=== PATIENT | female | born 1930 | race Caucasian/White ===

== ENCOUNTER → 2016-12-18 | Outpatient (CLI) | payer OTHER ==
[~2016-12-18] MED LIST: APIX5TAB OR; CELE100C82 PO; CIPR-173 PO; LEVO50TA7 PO; METO25TA62 PO; OXYB15TA12 PO
== END | disposition home or self-care (01) ==
LOC: XYW 07:58
PROVIDERS: ATTEND Orthopaedic Surgery
DX: Z01.818 Encounter for other preprocedural examination (principal); I08.1 Rheumatic disorders of both mitral and tricuspid valves
CPT/HCPCS: 93306

== ENCOUNTER → 2017-12-03 | Outpatient (CLI) | payer OTHER ==
[~2017-12-03] MED LIST changes: -APIX5TAB OR; +APIX5TAB PO; -CELE100C82 PO; +CELE1CAP8 PO; -CIPR-173 PO; +CLOB0.055 TOP; +HYDR25TA4 PO; +METO-169 PO; -METO25TA62 PO; -OXYB15TA12 PO
== END | disposition home or self-care (01) ==
LOC: XYW 07:25
PROVIDERS: ATTEND Internal Medicine Cardiovascular Disease
DX: I34.0 Nonrheumatic mitral (valve) insufficiency (principal); I10 Essential (primary) hypertension; E03.9 Hypothyroidism, unspecified
CPT/HCPCS: 93306

== ENCOUNTER 2017-12-06 08:45 | Emergency (ER) | payer OTHER, MEDICAID ==
[~2017-12-06] VITALS: Ht 152.4 cm; Wt 81.6 kg
[2017-12-06 08:53] VITALS: BP 123/60
[2017-12-06] MEDS ORDERED: cefTRIAXone SOD 1,000 MG VL IM ONE (09:30)
[2017-12-06] MEDS ORDERED: LIDOCAINE 1% HCL (LOCAL ANESTH.) INJ 20ML MDV IJ ONE (09:30)
[2017-12-06] MEDS ORDERED: LIDOCAINE 1% (LOCAL ANESTH.) PF 5ml SDV ONE (09:31)
== END 2017-12-06 10:15 | disposition home or self-care (01) ==
LOC: ER 08:45
DX: S51.852A Open bite of left forearm, initial encounter (principal); B99.9 Unspecified infectious disease; I10 Essential (primary) hypertension; E07.89 Other specified disorders of thyroid; Z90.710 Acquired absence of both cervix and uterus; Z90.89 Acquired absence of other organs; W55.01XA Bitten by cat, initial encounter; Y93.89 Activity, other specified; Y99.8 Other external cause status; Y92.89 Other specified places as the place of occurrence of the external cause
CPT/HCPCS: 96372; 99284; J0696

== ENCOUNTER 2019-02-11 06:51 | Day surgery (SDC) | payer OTHER, MEDICAID ==
[2019-02-09 11:06] LABS: Basophils # (auto) 0.1 uL; Eosinophils # (auto) 0.1 uL; Eosinophils % (auto) 1.2 % (0.0-7.0); Hematocrit 46.8 % (36.0-46.0); Hemoglobin 15.3 g/dL (12.2-16.2); Lymphocytes # (auto) 1.6 uL; Lymphocytes % (auto) 17.4 % (10.0-50.0); Mean Corpuscular Hemoglobin 28.3 pg (28.0-32.0); Mean Corpuscular Hgb Conc. 32.7 g/dL (32.0-36.0); Mean Corpuscular Volume 86.6 fL (80.0-100.0); Monocytes # (auto) 0.6 uL; Neutrophils # (auto) 6.6 uL; Neutrophils % (auto) 73.4 % (37.0-80.0); Nucleated Red Blood Cells % 0.1 %; Platelet Count (auto) 264 10^3/uL (140-450); Red Blood Cells 5.41 10^6/uL (4.0-5.20); Red Cell Distribution Width 15.5 % (11.8-14.3)
[2019-02-09 11:12] LABS: Urine Bacteria FEW /hpf (None Seen); Urine Blood Negative /uL (Negative); Urine Hyaline Cast FEW /lpf (0 - 2); Urine Mucus FEW (None Seen); Urine Specific Gravity 1.019 (1.001-1.035); Urine WBC 45 /hpf (0 - 5)
[2019-02-09 11:21] LABS: INR 0.99 (0.9-1.15); Partial Thromboplastin Time 29.3 sec (23.64-32.05)
[2019-02-09 11:25] LABS: Albumin 3.6 g/dL (3.4-5.0); Calcium 9.6 mg/dL (8.5-10.1); Potassium 3.9 mmol/L (3.5-5.1)
[2019-02-09 11:29] LABS: BUN/Creatinine Ratio 29.1; Bilirubin, Total 0.5 mg/dL (0.2-1.0); Total Protein 7.9 g/dL (6.4-8.2)
[~2019-02-11] VITALS: Ht 149.9 cm; Wt 80.7 kg
[~2019-02-11 06:51] MED LIST changes: +ACET-1156 PO; -CLOB0.055 TOP; +DILT120C64 PO; -METO-169 PO
[2019-02-11] MEDS ORDERED: IOHEXOL 350 MG/ML 100ML IJ ONE ×2 (08:24→09:12)
[2019-02-11] MEDS ORDERED: LIDOCAINE 2%HCL (LOCAL ANESTH.) INJ 20ML MDV ONE ×2 (08:24→09:15)
[2019-02-11] MEDS ORDERED: DOPamine 1600MCG/ML D5W 0 ML IV ONE (08:31)
[2019-02-11] MEDS ORDERED: ANGIOMAX 250 MG VIAL IV ONE (08:32)
[2019-02-11] MEDS ORDERED: SODIUM CHL 0.9% 50 ML ONE (08:32)
[2019-02-11] MEDS ORDERED: PHENYLEPHRINE HCL 10 MG/ML VL ONE (08:33)
[2019-02-11] MEDS ORDERED: ATROPINE SULF 1 MG/10ml SYR ONE (08:37)
[2019-02-11] MEDS ORDERED: fentaNYL CITRATE 100 MCG/2 ML VL ONE (09:05)
[2019-02-11] MEDS ORDERED: MIDAZOLAM HCL 1MG/1ML-2 ML VIAL ONE (09:05)
[2019-02-11] MEDS ORDERED: ACETAMINOPHEN 500 MG TAB PO PRN (10:30)
== END 2019-02-11 15:35 | disposition home or self-care (01) ==
LOC: CATH 06:51
PROVIDERS: ATTEND Internal Medicine
DX: I71.4 Abdominal aortic aneurysm, without rupture (principal); I10 Essential (primary) hypertension; Z96.653 Presence of artificial knee joint, bilateral; Z96.641 Presence of right artificial hip joint
CPT/HCPCS: 36200; 36415; 75625; 80053; 81001; 85025; 85610; 85730; 86850; 86900; 86901; 86920; C1760; C1769; C1894; J1644; J2250; J3010; J7030; Q9967; 99152; 99153

== ENCOUNTER → 2019-09-22 | Outpatient (CLI) | payer OTHER, MEDICAID ==
[2019-09-22 09:15] LABS: Calcium 8.8 mg/dL (8.5-10.1); Potassium 4.2 mmol/L (3.5-5.1)
[2019-09-22 09:17] LABS: BUN/Creatinine Ratio 26.9
== END | disposition home or self-care (01) ==
LOC: LAB 08:27
PROVIDERS: ATTEND Physician Assistant
DX: Z98.890 Other specified postprocedural states (principal)
CPT/HCPCS: 36415; 80048

== ENCOUNTER → 2019-11-04 | Emergency (ER) | payer OTHER, MEDICAID ==
[~2019-11-04] VITALS: Ht 149.9 cm; Wt 85.3 kg
[~2019-11-04] MED LIST changes: +IOHEXOL 300 MG/ML 100ML BOTTLE IJ ONE; +IOHEXOL 350 MG/ML 100ML IJ ONE
[2019-11-04 10:04] LABS: Basophils # (auto) 0 10 ^3/uL (0-0.2); Basophils % (auto) 0.4 % (0.0-2.0); Eosinophils # (auto) 0.2 10 ^3/uL (0-0.8); Eosinophils % (auto) 1.7 % (0.0-7.0); Hematocrit 45.8 % (36.0-46.0); Lymphocytes # (auto) 1.4 10 ^3/uL (0.4-5.4); Mean Corpuscular Hemoglobin 27.5 pg (28.0-32.0); Mean Corpuscular Hgb Conc. 32.7 g/dL (32.0-36.0); Mean Corpuscular Volume 84.1 fL (80.0-100.0); Monocytes # (auto) 1.2 10 ^3/uL (0-1.3); Monocytes % (auto) 10.6 % (0.0-12.0); Neutrophils # (auto) 8.7 10 ^3/uL (1.6-8.6); Neutrophils % (auto) 75.3 % (37.0-80.0); Nucleated Red Blood Cells % 0.1 %; Platelet Count (auto) 289 10^3/uL (140-450); Red Blood Cells 5.45 10^6/uL (4.0-5.20); Red Cell Distribution Width 15.2 % (11.8-14.3); White Blood Cell 11.5 10^3/uL (4.4-10.8)
[2019-11-04 10:21] LABS: Anion Gap 8 (5-15); Blood Urea Nitrogen 26 mg/dL (7-18); Calcium 8.8 mg/dL (8.5-10.1); Carbon Dioxide 24 mmol/L (21-32); Chloride 108 mmol/L (98-107); Glucose 120 mg/dL (74-106); INR 1.1 (0.9-1.15); Partial Thromboplastin Time 31.3 sec (23.0-31.2); Potassium 3.6 mmol/L (3.5-5.1); Sodium 140 mmol/L (136-145)
[2019-11-04 10:27] LABS: Alanine Aminotransferase 26 U/L (13-56); Alkaline Phosphatase 94 U/L (45-117); Aspartate Aminotransferase 27 U/L (15-37); BUN/Creatinine Ratio 29.5; Bilirubin, Total 0.4 mg/dL (0.2-1.0); GFR African American 78 mL/min; GFR Non-African American 65 mL/min; Total Protein 6.9 g/dL (6.4-8.2)
[2019-11-04 13:49] VITALS: BP 133/55
== END | disposition home or self-care (01) ==
LOC: ER 09:19
DX: R07.89 Other chest pain (principal); D72.829 Elevated white blood cell count, unspecified; I11.0 Hypertensive heart disease with heart failure; I50.43 Acute on chronic combined systolic (congestive) and diastolic (congestive) heart failure; Z90.49 Acquired absence of other specified parts of digestive tract; Z79.899 Other long term (current) drug therapy
CPT/HCPCS: 36415; 71045; 74177; 80053; 83880; 84484; 85025; 85610; 85730; 93005; 99285; Q9967

== ENCOUNTER → 2020-01-13 | Outpatient (CLI) | payer OTHER, MEDICAID ==
[~2020-01-13] MED LIST changes: +APIX5TAB OR; +CELE100C82 PO; -IOHEXOL 300 MG/ML 100ML BOTTLE IJ ONE; -IOHEXOL 350 MG/ML 100ML IJ ONE; +METO-158 PO; +TRIA50TA2 PO
== END | disposition home or self-care (01) ==
LOC: XYW 07:48
PROVIDERS: ATTEND Internal Medicine
DX: I50.33 Acute on chronic diastolic (congestive) heart failure (principal)
CPT/HCPCS: 93306

== ENCOUNTER → 2020-02-10 | Outpatient (CLI) | payer OTHER, MEDICAID | END | disposition home or self-care (01) | LOC: RT 08:29 | PROVIDERS: ATTEND Internal Medicine | DX: R06.02 Shortness of breath (principal) | CPT/HCPCS: 94060; 94727; 94729 ==

== ENCOUNTER 2020-07-11 12:23 | Observation (INO) | payer OTHER, MEDICAID ==
[~2020-07-11] VITALS: Ht 149.9 cm; Wt 87.5 kg
[2020-07-11 14:01] LABS: Hematocrit 46.7 % (36.0-46.0); Hemoglobin 15.7 g/dL (12.2-16.2); Mean Corpuscular Hemoglobin 29.3 pg (28.0-32.0); Mean Corpuscular Hgb Conc. 33.7 g/dL (32.0-36.0); Mean Corpuscular Volume 87.2 fL (80.0-100.0); Platelet Count (auto) 339 10^3/uL (140-450); Red Blood Cells 5.36 10^6/uL (4.0-5.20); Red Cell Distribution Width 15.2 % (11.8-14.3); White Blood Cell 13.2 10^3/uL (4.4-10.8)
[2020-07-11 14:09] LABS: Basophils % (manual) 0 (0.0-2.0); Blast Cells 0; Metamyelocytes % 0; Myelocytes % 0; Promyelocytes % 0; Reactive Lymphocytes 0
[2020-07-11 14:14] LABS: Albumin 3.3 g/dL (3.4-5.0); BUN/Creatinine Ratio 36.4; Calcium 9.5 mg/dL (8.5-10.1)
[2020-07-11 14:16] LABS: Bilirubin, Total 0.5 mg/dL (0.2-1.0); Total Protein 7.9 g/dL (6.4-8.2)
[2020-07-11] MEDS ORDERED: CLINDAMYCIN 600MG IV 50 ML IV ONE (15:45)
[2020-07-11 16:12] LABS: Band Neutrophils % (manual) 2; Eosinophils % (manual) 2 (0-7); Lymphocytes % (manual) 12 (10.0-50.0); Monocytes % (manual) 10 (0-12)
[2020-07-11] MEDS ORDERED: MORPHINE SULF INJ 2 MG/ML SYRINGE 1ML IV PRN ×2 (17:00)
[2020-07-11] MEDS ORDERED: ONDANSETRON HCL 4 MG/2 ML VIAL IV PRN (17:00)
[2020-07-11] MEDS ORDERED: ACETAMINOPHEN 325 MG TAB PO PRN (17:00)
[2020-07-11] MEDS ORDERED: NITROGLYCERIN 0.4 MG SL TAB SL PRN (17:00)
[2020-07-11] MEDS ORDERED: SODIUM CHLORIDE 0.9% 1,000 ML IV SCH (17:00)
[2020-07-11 22:00] VITALS: BP 120/66
[2020-07-11] MEDS ORDERED: APIXABAN 5 MG TAB PO SCH (22:00)
[2020-07-11 22:40] VITALS: BP 125/64
[2020-07-11] MEDS: CLINDAMYCIN 300MG IV 50 ML IV SCH (23:23)
[2020-07-11] MEDS: CELECOXIB 100 MG CAP PO SCH (23:24)
[2020-07-11] MEDS: APIXABAN 5 MG TAB PO SCH (23:24)
[2020-07-12 05:16] VITALS: BP 115/60
[2020-07-12] MEDS: CLINDAMYCIN 300MG IV 50 ML IV SCH ×2 (07:00→14:05)
[2020-07-12] MEDS ORDERED: LEVOTHYROXINE SODIUM 50 MCG TAB PO SCH (07:00)
[2020-07-12 09:00] VITALS: BP 110/76
[2020-07-12] MEDS ORDERED: cefTRIAXone 1GM/50ML D5W 50 ML IV SCH (09:00)
[2020-07-12] MEDS: APIXABAN 5 MG TAB PO SCH (09:50)
[2020-07-12] MEDS: CELECOXIB 100 MG CAP PO SCH (09:50)
[2020-07-12] MEDS ORDERED: FLORASTOR (S. BOULARDII) 250 MG CAP PO SCH (10:00)
[2020-07-12] MEDS ORDERED: dilTIAZem 120MG ER CAP PO SCH (10:00)
[2020-07-12] MEDS ORDERED: PANTOPRAZOLE 40 MG TAB PO SCH (10:00)
[2020-07-12 13:00] VITALS: BP 123/71
[2020-07-12 14:33] VITALS: BP 123/71
[2020-07-12 16:55] VITALS: BP 120/80
== END 2020-07-12 16:10 | disposition home or self-care (01) ==
LOC: ER 12:23 → INTOOBSV 16:56 → TELE 16:56 → TELE-CENTR 21:40
PROVIDERS: ADMIT Nurse Practitioner Acute Care; ATTEND Internal Medicine
DX: L03.116 Cellulitis of left lower limb (principal); Z20.822 Contact with and (suspected) exposure to COVID-19; I11.0 Hypertensive heart disease with heart failure; I50.32 Chronic diastolic (congestive) heart failure; I48.20 Chronic atrial fibrillation, unspecified; E03.9 Hypothyroidism, unspecified; E66.9 Obesity, unspecified; E78.5 Hyperlipidemia, unspecified; D72.829 Elevated white blood cell count, unspecified; I71.4 Abdominal aortic aneurysm, without rupture; Z90.710 Acquired absence of both cervix and uterus; Z79.899 Other long term (current) drug therapy; Z79.01 Long term (current) use of anticoagulants; Z96.642 Presence of left artificial hip joint; Z96.653 Presence of artificial knee joint, bilateral
CPT/HCPCS: 36415; 80053; 85007; 85027; 85652; 87426; 93971; 96365; 96366; 96367; 99284; G0378; J0696; J3490

== ENCOUNTER → 2020-08-03 | Outpatient (CLI) | payer OTHER, MEDICAID ==
[~2020-08-03] MED LIST changes: -APIX5TAB PO; -CELE100C82 PO; -HYDR25TA4 PO
== END | disposition home or self-care (01) ==
LOC: XYW 10:06
PROVIDERS: ATTEND Orthopaedic Surgery Adult Reconstructive Orthopaedic Surgery
DX: M47.816 Spondylosis without myelopathy or radiculopathy, lumbar region (principal); M43.16 Spondylolisthesis, lumbar region; M51.26 Other intervertebral disc displacement, lumbar region; M48.061 Spinal stenosis, lumbar region without neurogenic claudication; I71.4 Abdominal aortic aneurysm, without rupture
CPT/HCPCS: 72148

== ENCOUNTER 2020-09-08 08:43 | Day surgery (SDC) | payer OTHER, MEDICAID ==
[2020-09-05 12:55] LABS: Basophils # (auto) 0.1 10 ^3/uL (0-0.2); Basophils % (auto) 0.9 % (0.0-2.0); Eosinophils # (auto) 0.3 10 ^3/uL (0-0.8); Eosinophils % (auto) 2.2 % (0.0-7.0); Hematocrit 47.3 % (36.0-46.0); Hemoglobin 15.8 g/dL (12.2-16.2); Lymphocytes % (auto) 16.3 % (10.0-50.0); Mean Corpuscular Hemoglobin 29.4 pg (28.0-32.0); Mean Corpuscular Hgb Conc. 33.4 g/dL (32.0-36.0); Mean Corpuscular Volume 88.1 fL (80.0-100.0); Monocytes # (auto) 0.9 10 ^3/uL (0-1.3); Monocytes % (auto) 7.1 % (0.0-12.0); Neutrophils # (auto) 9.2 10 ^3/uL (1.6-8.6); Neutrophils % (auto) 73.5 % (37.0-80.0); Nucleated Red Blood Cells % 0.1 %; Platelet Count (auto) 300 10^3/uL (140-450); Red Blood Cells 5.36 10^6/uL (4.0-5.20); Red Cell Distribution Width 14.2 % (11.8-14.3); White Blood Cell 12.5 10^3/uL (4.4-10.8)
[2020-09-05 13:03] LABS: Urine Bacteria FEW /hpf (None Seen); Urine Blood Negative /uL (Negative); Urine Mucus MANY (None Seen); Urine Specific Gravity 1.027 (1.001-1.035); Urine WBC 35 /hpf (0 - 5)
[2020-09-05 13:12] LABS: INR 1.05 (0.9-1.15)
[2020-09-05 13:31] LABS: Albumin 3.4 g/dL (3.4-5.0); Calcium 9.6 mg/dL (8.5-10.1); Potassium 4.6 mmol/L (3.5-5.1)
[2020-09-05 13:35] LABS: Bilirubin, Total 0.3 mg/dL (0.2-1.0); Total Protein 7.6 g/dL (6.4-8.2)
[~2020-09-08] VITALS: Ht 149.9 cm; Wt 86.2 kg
[~2020-09-08 08:43] MED LIST changes: -ACET-1156 PO; -METO-158 PO
[2020-09-08] MEDS ORDERED: MEPERIDINE HCL (25 MG/ML) 1ML VIAL ONE (09:33)
[2020-09-08] MEDS ORDERED: MIDAZOLAM HCL 1MG/1ML-2 ML VIAL ONE (09:33)
[2020-09-08] MEDS ORDERED: fentaNYL CITRATE 100 MCG/2 ML VL ONE (09:33)
[2020-09-08] MEDS ORDERED: ONDANSETRON HCL 4 MG/2 ML VIAL ONE (09:34)
[2020-09-08] MEDS ORDERED: SODIUM CHLORIDE LOCK 10 ML ONE (09:34)
[2020-09-08] MEDS ORDERED: PROPOFOL 10 MG/ML 20 ML IV ONE (09:34)
[2020-09-08] MEDS ORDERED: ceFAZolin 1GM/50ML 100 ML IV ONE (10:15)
[2020-09-08] MEDS ORDERED: SILVER SULFADIAZINE 1 % TOPICAL CREAM 50GM TOP ONE (10:21)
[2020-09-08] MEDS ORDERED: METOPROLOL TARTRATE 1MG/1ML-5ML VIAL IV ONE (10:24)
[2020-09-08] MEDS ORDERED: LIDOCAINE 1% HCL (LOCAL ANESTH.) INJ 20ML MDV ONE (10:24)
[2020-09-08] MEDS ORDERED: ONDANSETRON HCL 4 MG/2 ML VIAL IV PRN (11:15)
[2020-09-08] MEDS ORDERED: LACTATED RINGER'S 1,000 ML IV SCH (11:15)
[2020-09-08 11:50] VITALS: BP 133/68
== END 2020-09-08 12:00 | disposition home or self-care (01) ==
LOC: SUR 08:43
PROVIDERS: ATTEND Specialist
DX: N90.4 Leukoplakia of vulva (principal); C51.9 Malignant neoplasm of vulva, unspecified; E66.01 Morbid (severe) obesity due to excess calories; I48.91 Unspecified atrial fibrillation; I49.9 Cardiac arrhythmia, unspecified; G89.29 Other chronic pain; E07.9 Disorder of thyroid, unspecified; M19.90 Unspecified osteoarthritis, unspecified site; I11.0 Hypertensive heart disease with heart failure; I72.9 Aneurysm of unspecified site; Z86.718 Personal history of other venous thrombosis and embolism; Z90.710 Acquired absence of both cervix and uterus; Z20.822 Contact with and (suspected) exposure to COVID-19; Z98.890 Other specified postprocedural states; Z68.35 Body mass index [BMI] 35.0-35.9, adult; Z79.899 Other long term (current) drug therapy; Z80.0 Family history of malignant neoplasm of digestive organs; Z80.2 Family history of malignant neoplasm of other respiratory and intrathoracic organs
CPT/HCPCS: 36415; 56605; 56606; 80053; 81001; 85025; 85610; 85730; 86850; 86900; 86901; J0690; J2175; J2250; J2405; J2704; J3010; U0003; J2001

== ENCOUNTER 2020-09-27 07:19 | Day surgery (SDC) | payer OTHER, MEDICAID ==
[~2020-09-27] VITALS: Ht 149.9 cm; Wt 89.4 kg
[~2020-09-27 07:19] MED LIST changes: +ACET-1156 PO; +APIX2.5T PO; -APIX5TAB OR; -CELE1CAP8 PO; +CELE200C PO; +CLOB0.055 TOP; +DILT-14 PO; -DILT120C64 PO; +FURO20TA3 PO; +POTA8TAB2 PO; +SPIR25TA8 PO
[2020-09-27] MEDS ORDERED: LIDOCAINE 2%HCL (LOCAL ANESTH.) INJ 20ML MDV ONE (09:01)
[2020-09-27] MEDS ORDERED: ANGIOMAX 250 MG VIAL IV ONE (09:43)
[2020-09-27] MEDS ORDERED: MIDAZOLAM HCL 1MG/1ML-2 ML VIAL ONE (09:43)
[2020-09-27] MEDS ORDERED: fentaNYL CITRATE 100 MCG/2 ML VL ONE (09:43)
[2020-09-27] MEDS ORDERED: SODIUM CHL 0.9% 0 ML ONE (09:43)
[2020-09-27] MEDS ORDERED: HEPARIN SODIUM (PORCINE) 5000 UNITS/ML 1ML VIAL ONE (09:44)
[2020-09-27] MEDS ORDERED: VERAPAMIL 2.5MG/ML INJ 2ML VIAL IV ONE (09:44)
[2020-09-27] MEDS ORDERED: IODIXANOL 320MG/ML 100ML BTL IV ONE (11:16)
[2020-09-27] MEDS ORDERED: ACETAMINOPHEN 500 MG TAB PO PRN (11:30)
[2020-09-27] MEDS ORDERED: ONDANSETRON HCL 4 MG/2 ML VIAL IV PRN (11:30)
== END 2020-09-27 15:55 | disposition home or self-care (01) ==
LOC: CATH 07:19
PROVIDERS: ATTEND Internal Medicine
DX: R94.39 Abnormal result of other cardiovascular function study (principal); I71.4 Abdominal aortic aneurysm, without rupture; I11.0 Hypertensive heart disease with heart failure; Z20.822 Contact with and (suspected) exposure to COVID-19; Z98.890 Other specified postprocedural states; Z79.899 Other long term (current) drug therapy; Z68.39 Body mass index [BMI] 39.0-39.9, adult; Z86.718 Personal history of other venous thrombosis and embolism; Z90.710 Acquired absence of both cervix and uterus; Z90.10 Acquired absence of unspecified breast and nipple; Z80.8 Family history of malignant neoplasm of other organs or systems
CPT/HCPCS: 93458; C1769; C1887; C1894; J1644; J2250; J3010; J7030; Q9967; U0003; 99152; 99153

== ENCOUNTER → 2020-10-06 | Outpatient (CLI) | payer OTHER, MEDICAID ==
[2020-10-06 12:06] LABS: Free T3 2.7 pg/mL (2.3-4.2); Free T4 (Free Thyroxine) 1.38 ng/dL (0.89-1.76)
== END | disposition home or self-care (01) ==
LOC: LAB 10:42
PROVIDERS: ATTEND Nurse Practitioner Acute Care
DX: I48.20 Chronic atrial fibrillation, unspecified (principal); E03.9 Hypothyroidism, unspecified
CPT/HCPCS: 36415; 83036; 83735; 83880; 84439; 84443; 84481

== ENCOUNTER → 2021-05-14 | Outpatient (CLI) | payer OTHER, MEDICAID ==
[2021-05-14 08:39] LABS: Basophils # (auto) 0.1 10 ^3/uL (0-0.2); Basophils % (auto) 0.8 % (0.0-2.0); Eosinophils # (auto) 0.2 10 ^3/uL (0-0.8); Eosinophils % (auto) 1.7 % (0.0-7.0); Hematocrit 49.8 % (36.0-46.0); Hemoglobin 16.4 g/dL (12.2-16.2); Lymphocytes # (auto) 1.8 10 ^3/uL (0.4-5.4); Mean Corpuscular Hemoglobin 28.2 pg (28.0-32.0); Mean Corpuscular Hgb Conc. 32.9 g/dL (32.0-36.0); Mean Corpuscular Volume 85.8 fL (80.0-100.0); Monocytes % (auto) 8.8 % (0.0-12.0); Neutrophils # (auto) 8.2 10 ^3/uL (1.6-8.6); Neutrophils % (auto) 72.7 % (37.0-80.0); Nucleated Red Blood Cells % 0.2 %; Red Cell Distribution Width 14.9 % (11.8-14.3); White Blood Cell 11.2 10^3/uL (4.4-10.8)
[2021-05-14 09:19] LABS: Albumin 3.2 g/dL (3.4-5.0); Calcium 9.9 mg/dL (8.5-10.1); Potassium 3.9 mmol/L (3.5-5.1)
[2021-05-14 09:25] LABS: BUN/Creatinine Ratio 17.5; Bilirubin, Total 0.6 mg/dL (0.2-1.0); Total Protein 7.9 g/dL (6.4-8.2)
== END | disposition home or self-care (01) ==
LOC: LAB 08:12
PROVIDERS: ATTEND Nurse Practitioner Family
DX: I08.3 Combined rheumatic disorders of mitral, aortic and tricuspid valves (principal); I11.0 Hypertensive heart disease with heart failure; I50.32 Chronic diastolic (congestive) heart failure; I27.20 Pulmonary hypertension, unspecified; R73.03 Prediabetes; E78.5 Hyperlipidemia, unspecified; I48.20 Chronic atrial fibrillation, unspecified
CPT/HCPCS: 36415; 80053; 80061; 80162; 84439; 84443; 85025; 93306

== ENCOUNTER → 2022-01-23 | Outpatient (CLI) | payer OTHER, MEDICAID ==
[2022-01-23 13:00] LABS: Basophils # (auto) 0.2 10 ^3/uL (0-0.2); Eosinophils # (auto) 0.1 10 ^3/uL (0-0.8); Eosinophils % (auto) 0.9 % (0.0-7.0); Hemoglobin 16.3 g/dL (12.2-16.2); Lymphocytes # (auto) 1.8 10 ^3/uL (0.4-5.4); Lymphocytes % (auto) 12.1 % (10.0-50.0); Mean Corpuscular Hgb Conc. 33.2 g/dL (32.0-36.0); Mean Corpuscular Volume 87.4 fL (80.0-100.0); Monocytes # (auto) 1.2 10 ^3/uL (0-1.3); Monocytes % (auto) 8.3 % (0.0-12.0); Neutrophils # (auto) 11.3 10 ^3/uL (1.6-8.6); Neutrophils % (auto) 77.7 % (37.0-80.0); Red Blood Cells 5.61 10^6/uL (4.0-5.20); Red Cell Distribution Width 14.5 % (11.8-14.3); White Blood Cell 14.5 10^3/uL (4.4-10.8)
[2022-01-23 13:16] LABS: Albumin 3.4 g/dL (3.4-5.0); Calcium 8.9 mg/dL (8.5-10.1); Magnesium 2.2 mg/dL (1.6-2.6); Potassium 4.3 mmol/L (3.5-5.1)
[2022-01-23 13:17] LABS: Urine Bacteria NONE SEEN /hpf (None Seen); Urine Blood TRACE /uL (Negative); Urine Mucus FEW (None Seen); Urine WBC 239 /hpf (0 - 5)
[2022-01-23 13:19] LABS: Bilirubin, Total 0.4 mg/dL (0.2-1.0)
== END | disposition home or self-care (01) ==
LOC: LAB 12:36
PROVIDERS: ATTEND Nurse Practitioner Acute Care
DX: I13.0 Hypertensive heart and chronic kidney disease with heart failure and stage 1 through stage 4 chronic kidney disease, or unspecified chronic kidney disease (principal); I50.9 Heart failure, unspecified; N18.9 Chronic kidney disease, unspecified; I48.20 Chronic atrial fibrillation, unspecified
CPT/HCPCS: 36415; 80053; 80162; 81001; 83036; 83735; 84443; 85025